=== PATIENT | female | born 1940 | race Caucasian/White ===

== ENCOUNTER → 2017-01-03 | Outpatient (CLI) | payer MEDICARE, OTHER | END | disposition home or self-care (01) | LOC: RAD.S 11:05 | DX: R13.10 Dysphagia, unspecified (principal) ==

== ENCOUNTER 2017-01-16 16:26 | Emergency (ER) | payer MEDICARE, OTHER ==
--- NOTE | 2017-01-21 08:46 | ER ---
ADMIT: 01/16/2017 RM/LOC: ER [facility] MR#: [id number] [id number] [address] [place] [address] Emergency Room Report SEX: F AGE: 76 : 1940 DATE: 01/16/2017 A 76-year-old female patient comes in with several days' worth of back pain. She apparently saw her primary doctor, he refused to renew her prescription for Hale and told her to come to the emergency department. See T-sheet for history and physical. The patient is diagnosed with exacerbation of chronic back pain. She is given Toradol in the emergency department. Discharged in improved condition. Instructed to follow back up with the primary doctor this week. DIAGNOSES: 1. Exacerbation. 2. Chronic back pain. Richie Grover MD/ william JOB #: [id number] CC: Panchito Fregoso MD, Attending Physician Dalton Anderson MD, Family Physician
== END 2017-01-16 18:30 | disposition home or self-care (01) ==
LOC: ER 16:26
DX: M54.6 Pain in thoracic spine (principal); G89.29 Other chronic pain; I10 Essential (primary) hypertension; Z88.2 Allergy status to sulfonamides